=== PATIENT | female | born 1985 | race Caucasian/White ===

== ENCOUNTER 2020-09-04 13:04 | Emergency (ER) | payer OTHER ==
[~2020-09-04] VITALS: Ht 167.6 cm; Wt 81.7 kg
[~2020-09-04 13:04] MED LIST: ACEBUTCAFT PO; ACET325 PO; ALBU90OI INH; ALPR.5 PO; AMIT50 PO; AZIT250 PO; AZIT500 PO; BCP; BENZ100A PO; BUPR150T2; CEPH500 PO; CIPR250 PO; CIPR500 PO; CLIN300 PO; CONEST1.25 PO; DIPATR PO; DOXY100 PO; FLUT.05NI; HYDACE10B PO; HYDACE5 PO; HYDACE5325 PO; IBUP400 PO; IBUP800 PO; LACT10SY PO; LEVFLO500 PO; LORA10ER PO; LUPRON; MAGCIT300 PO; METR500 PO; MULVITMINE; MULVITMINE PO; NAPR500 PO; ONDA4ODT MM; ONDA8 PO; OXYACE5T PO; OXYC5 PO; PHENA200 PO; POTCHL20ER PO; PROACE100 PO; PROM25 PO; PSEU30 PO; RANI150 PO; RXANTBENOT AU; RXCLIN PO; RXHYDACE PO; RXPHEN200 PO; RXPROM25 PO; RXTRAM50 PO; SULTRIDS PO; SUMA25 PO; TRAM50 PO; [UNRECOGNIZED DRUG - OTHER]; [UNRECOGNIZED DRUG - OTHER]; [UNRECOGNIZED DRUG - REMARK]; [UNRECOGNIZED DRUG - REMARK]
[2020-09-04] MEDS ORDERED: OMEP20ER PO (13:25)
[2020-09-04] MEDS ORDERED: DULO30 (13:25)
[2020-09-04] MEDS ORDERED: SUBOXONE 8 MG-1 EACH SL (13:26)
[2020-09-04] MEDS ORDERED: HYDPAM25 (13:26)
[2020-09-04] MEDS ORDERED: MAGCIT300 PO (13:44)
[2020-09-04] MEDS ORDERED: BISA5EC PO (13:44)
== END 2020-09-04 14:00 | disposition home or self-care (01) ==
LOC: ER 13:04
DX: K59.00 Constipation, unspecified (principal); F17.200 Nicotine dependence, unspecified, uncomplicated
CPT/HCPCS: 99283